=== PATIENT | male | born 1965 | race Caucasian/White ===

== ENCOUNTER 2016-09-02 10:48 | Inpatient (IN) | payer BC ==
[~2016-09-02] VITALS: Ht 177.8 cm; Wt 81.1 kg
[2016-09-02] MEDS ORDERED: LORAZEPAM 2 MG/ML VIAL IV ONE (15:10)
[2016-09-02] MEDS ORDERED: SALINE FLUSH 10 ML FLUSH PRN (15:10)
[2016-09-02] MEDS ORDERED: GUAIFEN/DM 10 ML UDC PO PRN (15:10)
[2016-09-02] MEDS ORDERED: FLEET ENEMA 132 ML BTL RECTAL PRN (15:10)
[2016-09-02] MEDS ORDERED: LORAZEPAM 0.5 MG TAB PO PRN (15:10)
[2016-09-02] MEDS ORDERED: ALU/MAG/SIM 30 ML UDC PO PRN (15:10)
[2016-09-02] MEDS ORDERED: BISACODYL EC 5 MG TAB PO PRN (15:10)
[2016-09-02] MEDS ORDERED: BISACODYL 10 MG SUPP RECTAL PRN (15:10)
[2016-09-02] MEDS ORDERED: ONDANSETRON 4 MG VIAL IV PRN (15:10)
[2016-09-02] MEDS ORDERED: MAG HYDROX 30 ML UDC PO PRN (15:10)
[2016-09-02 18:52] VITALS: BP_SYST 134; BP_SYST 138; RESP 18; TEMP 97.9
[2016-09-02 18:53] VITALS: Ht 177.8 cm; Wt 81.1 kg
[2016-09-02] MEDS: ACETAMINOPHEN 500 MG TAB PO SCH ×2 (18:58→23:10)
[2016-09-02] MEDS: NICOTINE 21 MG/24 HR TRANSDERM SCH (18:58)
[2016-09-02] MEDS: ASPIRIN EC 81 MG TAB PO SCH (18:59)
[2016-09-02] MEDS: FAMOTIDINE 20 MG TAB PO SCH (20:28)
[2016-09-02] MEDS: SALINE FLUSH 10 ML FLUSH SCH (20:29)
[2016-09-02] MEDS ORDERED: FAMOTIDINE 20 MG TAB PO SCH (21:00)
[2016-09-02 23:00] VITALS: RESP 18
[2016-09-03 00:17] VITALS: BP_SYST 143; RESP 18; TEMP 97.7
[2016-09-03 04:17] VITALS: BP_SYST 134; RESP 18; TEMP 98
[2016-09-03] MEDS: ACETAMINOPHEN 500 MG TAB PO SCH ×2 (05:18→08:14)
[2016-09-03] MEDS ORDERED: SODIUM CHLORIDE 0.9% FLUSH BAG 500 ML IV SCH (06:00)
[2016-09-03 07:41] VITALS: BP_SYST 118; RESP 16; TEMP 97.6
[2016-09-03] MEDS: NICOTINE 21 MG/24 HR TRANSDERM SCH (07:46)
[2016-09-03] MEDS: SALINE FLUSH 10 ML FLUSH SCH (08:13)
[2016-09-03] MEDS: FAMOTIDINE 20 MG TAB PO SCH (08:13)
[2016-09-03] MEDS: ASPIRIN EC 81 MG TAB PO SCH (08:14)
[2016-09-03] MEDS ORDERED: CYANOCOBALAMIN 1000 MCG/ML VIAL IM SCH (09:00)
[2016-09-03] MEDS ORDERED: CEFTRIAXONE 2 GM in SODIUM CHLORIDE 0.9% 50 ML IV SCH (10:45)
[2016-09-03 11:11] VITALS: BP_SYST 127; RESP 16; TEMP 97.9
[2016-09-03 15:42] VITALS: BP_SYST 134; RESP 18; TEMP 97.8
[2016-09-03 18:43] VITALS: BP_SYST 134; RESP 18; TEMP 97.8
== END 2016-09-03 18:55 | disposition home or self-care (01) | DRG 100 ==
LOC: ENRESERVTM → ENRESERVDT → ER 10:48 → EMR 15:20 → ENPENDDIS 15:20 → 4NT 18:23
PROVIDERS: ADMIT Internal Medicine; ATTEND Internal Medicine
DX: R56.9 Unspecified convulsions (principal); G92 Toxic encephalopathy; E53.8 Deficiency of other specified B group vitamins; Z87.820 Personal history of traumatic brain injury; F41.9 Anxiety disorder, unspecified; R51 Headache; F17.200 Nicotine dependence, unspecified, uncomplicated; Z81.1 Family history of alcohol abuse and dependence; Z80.1 Family history of malignant neoplasm of trachea, bronchus and lung
CPT/HCPCS: 36415; 70450; 70551; 71010; 80053; 81001; 82140; 82607; 82746; 82947; 84439; 84443; 85025; 85610; 85652; 93005; 93880; 95819; 99233; 99239